=== PATIENT | male | born 1965 | race Caucasian/White ===

== ENCOUNTER 2019-12-26 14:05 | Emergency (ER) | payer SELFPAY ==
[2019-12-26] MEDS ORDERED: CYCLOBENZAPRINE HCL 10 MG TABLET PO ONE (14:48)
[2019-12-26] MEDS ORDERED: HYDROCODONE/ACETAMINOPHEN 5-325 MG TABLET PO ONE (14:48)
--- NOTE | 2019-12-26 14:49 | ER Document Report ---
HPI - HPI Patient complains to provider of: Back pain Time Seen by Provider: 12/26/19 14:43 Pain Level: 3 Notes: 54-year-old male to the emergency department with complaints of mid and lower back pain that is been getting worse since 2000. He states he broke his neck in 2000 and since then is gone about chronic pain. He has been taking naproxen for his pain since then but he is worried that he should be taking something else. He denies any new recent falls. He denies any bladder bowel incontinence, urinary retention, saddle paresthesia, fevers or chills, IV drug abuse, radiculopathy. He states that he does not have a primary care physician currently but is supposed to start care with [facility] ([place], [place]) tomorrow. He denies any other complaints. - ROS Systems Reviewed and Negative: Yes All other systems reviewed and negative - CONSTITUTIONAL Constitutional: DENIES: Fever, Chills - EENT EENT: DENIES: Sore Throat, Ear Pain, Congestion - NEURO Neurology: DENIES: Headache, Weakness - CARDIOVASCULAR Cardiovascular: DENIES: Chest pain - RESPIRATORY Respiratory: DENIES: Trouble Breathing, Coughing - GASTROINTESTINAL Gastrointestinal: DENIES: Abdominal Pain, Nausea, Patient vomiting, Diarrhea - MUSCULOSKELETAL Musculoskeletal: REPORTS: Back Pain Notes: See HPI - DERM Skin Color: Normal Skin Problems: None Past Medical History - General Information source: Patient - Social History Smoking Status: Current Every Day Smoker Frequency of alcohol use: None Drug Abuse: None Family History: Reviewed & Not Pertinent Vertical Provider Document - CONSTITUTIONAL Agree With Documented VS: Yes Exam Limitations: No Limitations General Appearance: WD/WN, No Apparent Distress - HEENT HEENT: Atraumatic, Normocephalic, PERRLA - NECK Neck: Normal Inspection, Supple - RESPIRATORY Respiratory: Breath Sounds Normal, No Respiratory Distress. negative: Rales, Rhonchi, Wheezing - CARDIOVASCULAR Cardiovascular: Regular Rate, Regular Rhythm, No Murmur - GI/ABDOMEN Gastrointestinal: Abdomen Soft, Abdomen Non-Tender, No Organomegaly - BACK Notes: There is tenderness to palpation to the midline thoracic and lumbar spine without any step-off or deformity. Negative straight leg raise bilaterally. Patient can ambulate without assistance in the emergency department. - MUSCULOSKELETAL/EXTREMETIES Musculoskeletal/Extremeties: MAEW, FROM, Non-Tender - NEURO Level of Consciousness: Awake, Alert, Appropriate Motor/Sensory: No Motor Deficit, No Sensory Deficit, No Pronator Drift. negative: Weak Motor Strength RUE, Weak Motor Strength LUE, Weak Motor Strength RLE, Weak Motor Strength LLE - DERM Integumentary: Warm, Dry, No Rash Course - Re-evaluation Re-evalutation: 12/26/19 Impression: Chronic back pain. Noted degenerative disc disease on x-rays. Given this pain has been ongoing for some time advised the patient that he will need to follow with primary care and potentially pain management for further controlled substance pain management. He has gotten relief with [place] and Flexeril here. I will send him home with NSAIDs, Flexeril, Medrol Dosepak. I explained to him that we do not treat chronic pain in the emergency department with outpatient narcotic prescriptions and that he will need to follow-up outpatient for this. Patient voiced understanding and he agrees with the plan. - Vital Signs Vital signs: Temp Pulse Resp BP Pulse Ox 99.0 F 86 18 148/87 H 98 12/26/19 14:20 12/26/19 14:20 12/26/19 14:20 12/26/19 14:20 12/26/19 14:20 Discharge - Discharge Clinical Impression: Degenerative disc disease, lumbar Chronic back pain Qualifiers: Back pain location: low back pain Back pain laterality: midline Sciatica presence: without sciatica Qualified Code(s): M54.5 - Low back pain Condition: Stable Disposition: HOME, SELF-CARE Instructions: Low Back Pain ([facility]) Additional Instructions: Take medicines as prescribed. Follow-up with orthopedist without fail. Follow- up with [facility] tomorrow for your appointment. Return if worsening symptoms. Hold the naproxen. You may take the Voltaren. Prescriptions: Cyclobenzaprine HCl [Flexeril 10 mg Tablet] 10 mg PO TID #21 tablet Methylprednisolone [Medrol Dosepack (4 mg/Tab) 21 Tab/Dosepak] 4 mg PO ASDIR PRN #21 tab.ds.pk PRN Reason: Diclofenac Sodium [Voltaren 25 Mg Tablet] 25 mg PO BID #20 tablet. Referrals: [facility] [Provider Group] - Follow up tomorrow NALDO ROSE DO [ACTIVE STAFF] - Follow up in 1 week (for orthopedic follow up)
--- NOTE | 2019-12-26 15:59 | RADIOLOGY REPORT (SQ) ---
EXAM DESCRIPTION: T SPINE AP/LAT IMAGES COMPLETED DATE/TIME: 12/26/2019 3:39 pm REASON FOR STUDY: back pain COMPARISON: None. NUMBER OF VIEWS: Two views. TECHNIQUE: AP and lateral radiographic images acquired of the thoracic spine. LIMITATIONS: None. FINDINGS: MINERALIZATION: Normal. ALIGNMENT: Normal. No scoliosis. VERTEBRAE: No fracture or bone lesion. Maintained height, normal segmentation. DISCS: Mild multilevel spondylosis. HARDWARE: None in the spine. MEDIASTINUM AND SOFT TISSUES: Normal heart size and aortic contour. No soft tissue abnormality. VISUALIZED LUNG [place]: Clear. OTHER: No other significant finding. IMPRESSION: No evidence of acute bony abnormality of the thoracic spine. Mild multilevel degenerati ve change. TECHNICAL DOCUMENTATION: JOB ID: [id number] 2010 [employer]- All Rights Reserved Reading location - IP/workstation name: [email or web address]
--- NOTE | 2019-12-26 16:03 | RADIOLOGY REPORT (SQ) ---
EXAM DESCRIPTION: L SPINE WHOLE IMAGES COMPLETED DATE/TIME: 12/26/2019 3:39 pm REASON FOR STUDY: back pain COMPARISON: 06/22/2010 NUMBER OF VIEWS: Five views including obliques. TECHNIQUE: AP, lateral, oblique, and sacral radiographic images acquired of the lumbar spine. LIMITATIONS: None. FINDINGS: MINERALIZATION: Normal. SEGMENTATION: Normal. No transitional anatomy. ALIGNMENT: Mild straightening of the normal lumbar lordosis. VERTEBRAE: Maintained height. No fracture or worrisome bone lesion. DISCS: Multilevel disc height loss and endplate change with osteophytosis and endplate sclerosis grea test at L4-5 and L5-S1. POSTERIOR ELEMENTS: No definite pars defect. No facet fracture identified. Multilevel lower lumbar facet arthropathy. HARDWARE: None in the spine. PARASPINAL SOFT TISSUES: Scattered vascular calcifications. PELVIS: Intact as visualized. No fractures or worrisome bone lesions. SI joints intact. OTHER: No other significant finding. IMPRESSION: 1. No evidence of acute bony abnormality of the lumbar spine. 2. Multilevel degenerative disc disease and lower lumbar facet arthropathy, progressed from prior. TECHNICAL DOCUMENTATION: JOB ID: [id number] 2010 [employer]- All Rights Reserved Reading location - IP/workstation name: [email or web address]
[2019-12-26 16:35] VITALS: BP 139/74
== END 2019-12-26 16:32 | disposition home or self-care (01) ==
LOC: ER 14:05
DX: M51.36 Other intervertebral disc degeneration, lumbar region (principal); M47.814 Spondylosis without myelopathy or radiculopathy, thoracic region; F17.200 Nicotine dependence, unspecified, uncomplicated; Z79.1 Long term (current) use of non-steroidal anti-inflammatories (NSAID)
CPT/HCPCS: 72070; 72110; 99283